=== PATIENT | female | born 1970 | race Caucasian/White ===

== ENCOUNTER 2024-06-05 01:29 | Emergency (ER) | payer OTHER, SELFPAY ==
[2024-06-05 01:30] VITALS: BP 140/80; PULSE 95; RESP 19; TEMP 36.6; O2SAT 98
--- OUTSIDE RECORDS SUMMARY | 2024-06-05 01:32 | XMS_ITS | Clinical Summary ---
Author Organization [facility] Address [address] [place] [address] Phone Care Team Providers Care Engineer Sergeant Name Role Phone Jose Carlos Vargas MD Primary Care Provider [phone] Social History Tobacco Use Types Packs/Day Years Used Date Smoking Tobacco: Never Assessed Comments Unknown Sex and Gender Information Value Date Recorded Sex Assigned at Not on file Legal Sex Female 12:13 AM CDT Gender Identity Not on file Sexual Orientation Not on file Plan of Treatment Health Maintenance Due Date Last Done Comments Hepatitis C Virus (HCV) Screening 1972 TdaP Immunization 1972 Hepatitis B Immunization (1 of 3 - 19+ 3-dose series) 06/06/1991 Colonoscopy 2017 Colorectal Cancer Screening 2017 Cologuard 2022 Immunochemical Fecal Occult Blood 2022 Pneumococcal Immunization (5 0+ years) (1 of 1 - PCV) 2022 Zoster Immunization (1 of 2) 2022 Influenza Immunization (#1) 2023 SARS-COV-2 Immunization (2 - season) 2023 07/01/2020 Respiratory Syncytial Virus (RSV) Immunization (Adult) (1 - 1-dose 75+ series) 06/06/2047 Meningococcal Immunization (ACWY) Aged Out No longer eligible based on patient's age to complete this topic Rotavirus Immunization Aged Out No lo nger eligible based on patient's age to complete this topic Insurance MEDICAID [employer] Care Teams Engineer Sergeant Relationship Specialty Start Date End Date Jose Carlos Vargas MD [address] [place] [address] PCP - General Family Medicine 02/24/21
--- OUTSIDE RECORDS SUMMARY | 2024-06-05 01:32 | XMS_ITS | Clinical Summary ---
Author Organization [facility] Address [address] [place] [address] Care Team Providers Care Intertype Operator Name Role Phone Roberto Villalpando MD Primary Care Provider [phone] Source Comments [facility],non-owned Affiliates and Associated Physician Practices is amultiple site organization consisting of ambulatory clinics and hospital sitesin [place], [place], [place] and [place]. This disclosure is being madepursuant to the Care Everywhere program and may not contain all information available regarding this patient. Last updated 17.[facility] Allergies No known active allergies Medications * Be aware that medications may not be up to date on this document. Alwaysverify current medications with the patient. ALPRAZolam (XANAX) 0.25 MG tablet Take by mouth. 8 Active topiramate (TOPAMAX) 50 MG tablet 8 Active PARoxetine (PAXIL) 10 MG tablet Take by mouth. 8 Active atorvastatin (LIPITOR) 10 MG tablet atorvastatin 10 mg tablet TAKE 1 TABLET BY MOUTH EVERY DAY AT BEDTIME Active baclofen (LIORESAL) 20 MG tablet baclofen 20 mg tablet TAKE 1 TABLET BY MOUTH EVERY 8 HOURS NEEDED Active celecoxib (CELEBREX) 100 MG capsule celecoxib 100 mg capsule Active ergocalciferol (DRISDOL) 1.25 MG (20147 UT) capsule ergocalciferol (vitamin D2) 1,250 mcg (50,000 unit) capsule Active phentermine (ADIPEX-P) 37.5 MG tablet phentermine 37.5 mg tablet TAKE 1 TABLET BY MOUTH EVERY DAY IN THE MORNING Active Social History Tobacco Use Types Packs/Day Years Used Date Smoking Tobacco: Every Day Cigarettes Smokeless Tobacco: Never Alcohol Use Standard Drinks/Week Comments Yes 0 (1 standard drink = 0.6 oz pur e alcohol) Comments Unknown Sex and Gender Information Value Date Recorded Sex Assigned at Not on file Legal Sex Female 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 Gender Identity Not on file Sexual Orientation Not on file Last Filed Vital Signs Vital Sign Reading Time Taken Comments Blood Pressure 114/81 03/22/2017 11:54 AM 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 Pulse 87 03/22/2017 11:54 AM 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 Temperature - - Respiratory Rate - - Oxygen Saturation - - Inhaled Oxygen Concentration - - Weight 103.8 kg (228 lb 12.8 oz) 04/01/2021 8:52 AM 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 Height 177.8 cm (5' 10 ) 04/01/2021 8:52 AM 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 Body Mass Index 32.83 04/01/2021 8:52 AM 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 Plan of Treatment Health Maintenance Due Date Last Done Comments COLOGUARD (AGES 45-75) - COL ON CA SCREENING 1972 COLON MONITORING 1972 COLONOSCOPY - COLON CA SCREENING 1972 CT COLONOGRAPHY - COLON CA SCREENING 1972 Colorectal Cancer Screening 1972 FIT - COLON CA SCREENING 1972 FLEX SIG - COLON CA SCREENING 1972 MAMMOGRAM 1972 PAP SMEAR 1972 HIV SCREENING 06/06/1987 HEPATITIS C SCREENING 06/01/1990 DTAP/TDAP/TD VACCINES (1 - Tdap) 06/06/1991 HEPATITIS B VACCINE (1 of 3 - 19+ 3-dose series) 06/06/1991 PNEUMOCOCCAL VACCINE 50+ (1 of 2 - PCV) 06/06/1991 SCREENING FOR DIABETES 04/01/2021 ZOSTER VACCINE (1 of 2) 2022 COVID-19 VACCINE ( - 2023-2 5 season) 2023 DEPRESSION SCREENING 02/09/2024 INFLUENZA VACCINE (Season Ended) 2024 HIB VACCINE Aged Out No longer eligi ble based on patient's age to complete this topic HPV VACCINE Aged Out No longer eligi ble based on patient's age to complete this topic MENINGOCOCCAL (Group B) VACC INE SHARED DECISION-MAKING Aged Out No longer eligibl e based on patient's age to complete this topic MENINGOCOCCAL GROUPS A/C/Y/W VACCINE Aged Out No longer eligible b ased on patient's age to complete this topic Insurance [facility] Care Teams Intertype Operator Relationship Specialty Start Date End Date Roberto Villalpando MD [address] [facility] [address] [place] [address] PCP - General 12/22/16
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
--- OUTSIDE RECORDS SUMMARY | 2024-06-05 01:32 | XMS_ITS | Clinical Summary ---
Author Organization [facility] Address [address] [place] [address] Care Team Providers Care Snubber Name Role Phone Jose Carlos Vargas MD Primary Care Provider [phone] Encounters Date Type Department Care Team Description 05/18/2024 10:07 AM CDT - 05/18/2024 11:59 PM CDT Hospital Encounter [facility] [address] [place] [address] Jose Carlos Vargas MD Discharge Disposition: Home or Self Care (Routine Discharge) 05/18/2024 Travel from Last 3 Months Social History Tobacco Use Types Packs/Day Years Used Date Smoking Tobacco: Never Assessed Comments Unknown Sex and Gender Information Value Date Recorded Sex Assigned at Female 05/02/2024 9:49 AM CDT Legal Sex Female 8:45 AM CDT Gender Identity Not on file Sexual Orientation Not on file Plan of Treatment Health Maintenance Due Date Last Done Comments Cervical Cancer Screening Pa p Smear (Age 30 to 64) Every 3 Years 1972 Colorectal Cancer Screening Colonoscopy (10 Years) 1972 Annual Physical 06/06/1975 Hepatitis C 1990 DTaP, Tdap and Td Vaccines ( 1 - Tdap) 06/06/1991 Hepatitis B Vaccines (1 of 3 - 19+ 3-dose series) 06/06/1991 Cervical Cancer Screening Pa p with HPV Testing (Age 30 to 64) Every 5 Years 2002 Cervical Cancer Screening wi th HPV 2002 Mammogram Screening 2012 Pneumococcal Vaccine: 50+ Years (1 of 1 - PCV) 2022 Zoster Vaccines (1 of 2) 2022 COVID-19 Vaccine (3 - 2023-2 5 season) 2023 09/23/2021, 07/01/2020 Meningococcal B Vaccine Aged Out No l onger eligible based on patient's age to complete this topic Meningococcal Vaccine Aged Out No gautam hannah eligible based on patient's age to complete this topic RSV Immunizations Under 20 Months Aged Out No longer eligible b ased on patient's age to complete this topic Procedures Procedure Name Priority Date/Time Associated Diagnosis Comments MRI LUMB SPINE WO CON Routine 05/18/2024 11:12 AM CDT Other chronic pain from Last 3 Months Results * MRI LUMB SPINE WO CON (05/18/2024 11:12 AM CDT) Anatomical Region Laterality Modality Spine Magnetic Resonan ce 05/23/2024 8:31 PM CDT Impressions 05/23/2024 8:35 PM CDT =====IMPRESSION:===== 1. Multilevel degenerative changes as described of zuwq-gw-qggjkaif degree with mild retrolisthesis at L2-3 due to facet disease. 2. Degenerative grade 1 anterolisthesis at L4-5 and L5/S1 as described. Disc bulges at these levels. 3. Multilevel stenosis. Ordered By: JOSE CARLOS VARGAS Interpreted By: Jacob Soto MD, 05/23/2024 8:31 PM Narrative 05/23/2024 8:35 PM CDT [address] [address] EXAMINATION: MRI lumbar spine without contrast EXAM DATE/TIME: 05/18/2024 10:45 AM REASON FOR EXAM: OTHER CHRONIC PAIN COMPARISON: No previous. TECHNIQUE: Mutiplanar, multisequence MRI of the lumbar spine was obtained without the use of an IV contrast agent. FINDINGS: The height of the lumbar vertebra are well-maintained. In the lumbar vertebra there are no acute signal changes. Degenerative endplate signal changes including at L2-3 level with minimal retrolisthesis. In the lower thoracic segments no significant disc lesions. L1-L2: Mild degenerative changes with subtle mild bulge. There is no significant stenosis. Posterior elements are unremarkable. L2-3: Degenerative changes with minimal retrolisthesis and degenerative endplate edema with agbt-we-zgbxdelq diffuse unremarkable. There is foraminal stenosis worse on the left side. Borderline size of the central canal. Hypertrophy of the facets of moderate degree with fluid in the facets. L3-4: At least moderate facet hypertrophy with thickening of the ligaments and fluid in the facets. There is mild diffuse disc bulge. Borderline size of the lateral recesses and the central canal. No significant foraminal stenosis. L4/5: Degenerative changes with severe facet disease and grade 1 anterolisthesis with diffuse bulge. There is mild narrowing of the neural foramen and dysq-ga-jbgsjidp narrowing of the lateral recesses and the central canal with flattening of the dural sac. L5/S1: Severe facet disease. Grade 1 anterolisthesis with prominent degenerative endplate edema and moderate diffuse disc bulge with mild to moderate narrowing and deformity of the neural foramen worse on the left. There is also mild flattening of the dural sac with narrowing of the lateral recesses and the central canal of ggmy-iw-lgdiviga degree. Within the dural sac no abnormal signal. The distal spinal cord unremarkable. Assessment of the kidneys is somewhat compromised due to incomplete visualization and adjacent artifacts especially close to the left kidney. Procedure Note Jacob Soto MD - 05/23/2024 [facility] [place] [address] EXAMINATION: MRI lumbar spine without contrast EXAM DATE/TIME: 05/18/2024 10:45 AM REASON FOR EXAM: OTHER CHRONIC PAIN COMPARISON: No previous. TECHNIQUE: Mutiplanar, multisequence MRI of the lumbar spine was obtainedwithout the use of an IV contrast agent. FINDINGS: The height of the lumbar vertebra are well-maintained. In thelumbar vertebra there are no acute signal changes. Degenerative endplatesignal changes including at L2-3 level with minimal retrolisthesis. In the lower thoracic segments no significant disc lesions. L1-L2: Mild degenerative changes with subtle mild bulge. There is nosignificant stenosis. Posterior elements are unremarkable. L2-3: Degenerative changes with minimal retrolisthesis and degenerativeendplate edema with jhce-oc-flxosjmb diffuse unremarkable. There isforaminal stenosis worse on the left side. Borderline size of the centralcanal. Hypertrophy of the facets of moderate degree with fluid in thefacets. L3-4: At least moderate facet hypertrophy with thickening of the ligamentsand fluid in the facets. There is mild diffuse disc bulge. Borderline sizeof the lateral recesses and the central canal. No significant foraminalstenosis. L4/5: Degenerative changes with severe facet disease and grade 1anterolisthesis with diffuse bulge. There is mild narrowing of the neuralforamen and hgzr-gx-qkhytbji narrowing of the lateral recesses and thecentral canal with flattening of the dural sac. L5/S1: Severe facet disease. Grade 1 anterolisthesis with prominentdegenerative endplate edema and moderate diffuse disc bulge with mild tomoderate narrowing and deformity of the neural foramen worse on the left.There is also mild flattening of the dural sac with narrowing of thelateral recesses and the central canal of pszu-gi-qwufafvr degree. Within the dural sac no abnormal signal. The distal spinal cordunremarkable. Assessment of the kidneys is somewhat compromised due toincomplete visualization and adjacent artifacts especially close to theleft kidney. =====IMPRESSION:===== 1. Multilevel degenerative changes as described of morl-ik-julpyhos degreewith mild retrolisthesis at L2-3 due to facet disease. 2. Degenerative grade 1 anterolisthesis at L4-5 and L5/S1 as described.Disc bulges at these levels. 3. Multilevel stenosis. Ordered By: JOSE CARLOS VARGAS Interpreted By: Jacob Soto MD, 05/23/2024 8:31 PM Jose Carlos Vargas MD MRI Final Result from Last [address] [place] [address] [place] [address] Care Teams Snubber Relationship Specialty Start Date End Date Jose Carlos Vargas MD [address] [place] [id number] PCP - General HOSPITALIST 05/18/24
--- OUTSIDE RECORDS SUMMARY | 2024-06-05 01:32 | XMS_ITS | Patient Health Record ---
Author Organization [facility] [place] Address [address] [place], [place] [address] Care Team Providers Care Kindergarten Teacher Name Role Phone BC PENALOZA Primary Care Provider Unavailabl e ALLERGIES No Known Allergies REASON FOR REFERRAL No Information MEDICATIONS Medication SIG (Take, Route, Frequency, Duration) Notes Start Date End Date Status toradol Not-Taking Aspirin 81 81 MG 1 tablet Orally Once a day Not-Taking Baclofen 20 MG 1 tablet Administer without regards to meals as needed Orally Twice a day Active Atorvastatin Calcium 10 MG 1 tablet Orally Once a day Active Xanax 0.5 MG 1 tablet Orally 1- 2 tabs 30 mins before MRI for 1 day 04/03/2022 Active HYDROcodone-Acetaminophen 5-325 MG 1 tablet as needed Orally every 24 hours Active Celecoxib 100 MG 1 capsule with food Orally Once a day Active SOCIAL HISTORY Tobacco Use: Social History Observation Description Date Details (start date - stop date) Current Smoker NA - NA Sex Assigned At : Social History Observation Description Sex Assigned At Unknown Tobacco Use/Smoking Question Answer Notes Are you a current every day smoker PROBLEMS Problem Type ICD Code Onset Dates Problem Status W/U Status Risk SNOMED Code Notes Problem Spondylolisthe sis, 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 Acquired spondylolisthesis (968929057) Problem Spondylolisthe sis, lumbosacral region (M43.17) Active confirmed Acquired spondylolisthesis (582994304) Problem Spondylosis without myelopathy or radiculopathy, lumbar region (M47.816) Active confirmed Lumbosacral spondylosis without myelopathy (96284175) Problem Spondylosis without myelopathy or radiculopathy, lumbosacral region (M47.817) Active confirmed Lumbosacral spondylosis without myelopathy (disorder) (99358161) PLAN OF TREATMENT Pending Test Test Name Order Date X ray : Pelvis 02/24/2022 Urine Drug Screen 02/24/2022 MRI : Lumbar without contrast 03/31/2022 X RAY : LUMBAR SPINE FLEXION AND EXTENSI ON VIEW 02/24/2022 1. CBC WITH DIFFERENTIAL 02/24/2022 2. ESR 02/24/2022 3. C-REACTIVE PROTEIN 02/24/2022 MEDICAL (GENERAL) HISTORY Medical History History ICD Code vitamin D deficiency hypercholesterolemia hyperlipidemia steatohepatitis lumbar radiculopathy Surgical History Surgery Date(Month/Year) hysterectomy, partial section X3 cyst removed from hand and buttock
--- NOTE | 2024-06-05 03:12 | PC.NURSE ---
Patient to ED triage desking stating I'm going to just go to a [facility], it's been an hour and a half and there's no one in here waiting.
--- OUTSIDE RECORDS SUMMARY | 2024-06-05 03:58 | XMS_ITS | Clinical Summary ---
Author Organization [facility] Address [address] [facility] [place] [address] Care Team Providers Care Licensing Registration Examiner Name Role Phone Roberto Villalpando MD Primary Care Provider [phone] Source Comments [facility],non-owned Affiliates and Associated Physician Practices is amultiple site organization consisting of ambulatory clinics and hospital sitesin [place], [place], [place] and [place]. This disclosure is being madepursuant to the Care Everywhere program and may not contain all information available regarding this patient. Last updated 17.[facility] Allergies No known active allergies Medications * [...] mg capsule Active ergocalciferol (DRISDOL) 1.25 MG (11426 UT) capsule ergocalciferol (vitamin D2) 1,250 mcg [...] on file Legal Sex Female 7:46 PM SENIOR CLIMATE ADVISOR Gender Identity Not on file Sexual Orientation Not on file Last Filed Vital Signs Vital Sign Reading Time Taken Comments Blood Pressure 114/81 03/22/2017 11:54 AM SENIOR CLIMATE ADVISOR Pulse 87 03/22/2017 11:54 AM SENIOR CLIMATE ADVISOR Temperature - - Respiratory Rate - - Oxygen Saturation - - Inhaled Oxygen Concentration - - Weight 103.8 kg (228 lb 12.8 oz) 04/01/2021 8:52 AM SENIOR CLIMATE ADVISOR Height 177.8 cm (5' 10 ) 04/01/2021 8:52 AM SENIOR CLIMATE ADVISOR Body Mass Index 32.83 04/01/2021 8:52 AM SENIOR CLIMATE ADVISOR Plan of Treatment Health Maintenance Due Date [...] patient's age to complete this topic Insurance [facility] Care Teams Licensing Registration Examiner Relationship Specialty Start Date End Date Roberto Villalpando MD [address] [facility] [address] [facility] [address] [place] [address] PCP - General 12/22/16
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
--- OUTSIDE RECORDS SUMMARY | 2024-06-05 03:58 | XMS_ITS | Clinical Summary ---
Author Organization [facility] Address [address] [place] [address] Phone Care Team Providers Care Membership Administrator Name Role Phone Jose Carlos Vargas MD Primary Care Provider [phone] Social History Tobacco Use Types Packs/Day Years [...] Insurance MEDICAID [employer] Care Teams Membership Administrator Relationship Specialty Start Date End Date Jose Carlos Vargas MD [address] [place] [address] PCP - General Family Medicine 02/24/21
--- OUTSIDE RECORDS SUMMARY | 2024-06-05 03:58 | XMS_ITS | Clinical Summary ---
Author Organization [facility] Address [address] [place] [address] Care Team Providers Care [place] Name Role Phone Jose Carlos Vargas MD Primary Care Provider [phone] Encounters Date Type Department Care Team Description 05/18/2024 10:07 AM CDT - 05/18/2024 11:59 PM CDT Hospital Encounter [facility] [address] [place] [address] Jose Carlos Vargas MD Discharge Disposition: Home [...] 1. Multilevel degenerative changes as described of fbex-ns-qudzfybp degree with mild retrolisthesis at L2-3 due to facet disease. 2. Degenerative grade 1 anterolisthesis at L4-5 and L5/S1 as described. Disc bulges at these levels. 3. Multilevel stenosis. Ordered By: JOSE CARLOS VARGAS Interpreted By: Jacob Soto MD, 05/23/2024 8:31 PM Narrative 05/23/2024 8:35 PM CDT [address] [address] EXAMINATION: MRI lumbar spine without contrast EXAM [...] minimal retrolisthesis and degenerative endplate edema with yqwv-zy-nikevfnk diffuse unremarkable. There is foraminal stenosis worse [...] mild narrowing of the neural foramen and yyat-kk-bpsojpbi narrowing of the lateral recesses and the [...] lateral recesses and the central canal of ceum-zy-ollophtd degree. Within the dural sac no abnormal signal. The distal spinal cord unremarkable. Assessment of the kidneys is somewhat compromised due to incomplete visualization and adjacent artifacts especially close to the left kidney. Procedure Note Jacob Soto MD - 05/23/2024 [facility] [place] [address] EXAMINATION: MRI lumbar spine without contrast EXAM [...] with minimal retrolisthesis and degenerativeendplate edema with mixn-rv-jlgfsjxd diffuse unremarkable. There isforaminal stenosis worse on [...] is mild narrowing of the neuralforamen and gxgs-oq-agvsplct narrowing of the lateral recesses and thecentral canal with flattening of the dural sac. L5/S1: Severe facet disease. Grade 1 anterolisthesis with prominentdegenerative endplate edema and moderate diffuse disc bulge with mild tomoderate narrowing and deformity of the neural foramen worse on the left.There is also mild flattening of the dural sac with narrowing of thelateral recesses and the central canal of ftwz-zb-innrxkcx degree. Within the dural sac no abnormal signal. The distal spinal cordunremarkable. Assessment of the kidneys is somewhat compromised due toincomplete visualization and adjacent artifacts especially close to theleft kidney. =====IMPRESSION:===== 1. Multilevel degenerative changes as described of damq-ef-mhjcstey degreewith mild retrolisthesis at L2-3 due to facet disease. 2. Degenerative grade 1 anterolisthesis at L4-5 and L5/S1 as described.Disc bulges at these levels. 3. Multilevel stenosis. Ordered By: JOSE CARLOS VARGAS Interpreted By: Jacob Soto MD, 05/23/2024 8:31 PM Jose Carlos Vargas MD MRI Final Result from Last [address] [place] [address] Care Teams [place] Relationship Specialty Start Date End Date Jose Carlos Vargas MD [address] [place] [id number] PCP - General HOSPITALIST 05/18/24
== END 2024-06-05 04:12 | disposition left against medical advice (07) ==
PROVIDERS: PCP Family Medicine
DX: R45.0 Nervousness (principal)
CPT/HCPCS: 99199